=== PATIENT | male | born 1980 | race Caucasian/White ===

== ENCOUNTER 2022-04-09 10:26 | Day surgery (SDC) | payer OTHER ==
[2022-04-08 10:07] LABS: COVID AG,FIA SOURCE NASAL SWAB
[~2022-04-09] VITALS: Ht 167.6 cm; Wt 139.5 kg
[~2022-04-09 10:26] MED LIST: HYDR25TA2 PO; SODIUM CHLORIDE 0.9% 1,000 ML IV ONE; SODIUM CHLORIDE 0.9% 1,000 ML ONE
[2022-04-09] MEDS ORDERED: LIDOCAINE/PF 2% 5 ML VIAL IM ONE (10:27)
[2022-04-09] MEDS ORDERED: PROPOFOL 1% 20 ML VIAL IVP ONE (10:27)
== END 2022-04-09 13:15 | disposition home or self-care (01) ==
LOC: SURGERY 10:26
PROVIDERS: ATTEND Internal Medicine Gastroenterology
DX: D12.2 Benign neoplasm of ascending colon (principal); D12.3 Benign neoplasm of transverse colon; D12.4 Benign neoplasm of descending colon; I10 Essential (primary) hypertension; K21.9 Gastro-esophageal reflux disease without esophagitis; E66.01 Morbid (severe) obesity due to excess calories; K62.1 Rectal polyp; K64.1 Second degree hemorrhoids; Z20.822 Contact with and (suspected) exposure to COVID-19; Z79.899 Other long term (current) drug therapy; Z98.890 Other specified postprocedural states; Z86.010 Personal history of colon polyps
CPT/HCPCS: 87426; 45385; 45380; C9803; C1769; J2704; J3490; J7030; 88305